=== PATIENT | male | born 1990 | race Caucasian/White ===

== ENCOUNTER 2016-10-07 08:56 | Emergency (ER) | payer SELFPAY ==
[~2016-10-07] VITALS: Ht 182.9 cm; Wt 101.5 kg
[2016-10-07] MEDS ORDERED: KETOROLAC 30 MG/1 ML ONE (09:26)
[2016-10-07] MEDS ORDERED: KETOROLAC 30 MG/1 ML IM ONE (09:30)
[2016-10-07 10:52] VITALS: BP 145/83
== END 2016-10-07 11:03 | disposition home or self-care (01) ==
LOC: ED 10:40
DX: S16.1XXA Strain of muscle, fascia and tendon at neck level, initial encounter (principal); S33.5XXA Sprain of ligaments of lumbar spine, initial encounter; V49.9XXA Car occupant (driver) (passenger) injured in unspecified traffic accident, initial encounter; Y93.89 Activity, other specified; Y92.89 Other specified places as the place of occurrence of the external cause; Y99.8 Other external cause status
CPT/HCPCS: 72050; 72110; 96372; 99284; J1885